=== PATIENT | male | born 1995 | race Caucasian/White ===

== ENCOUNTER 2022-06-06 09:18 | Emergency (ER) | payer SELFPAY ==
--- NOTE | ~2022-06-06 | XR_ITS ---
EXAMINATION: XR ANKLE, RIGHT. XR FOOT, RIGHT. CLINICAL INFORMATION: Injury COMPARISON: Radiographs 03/27/2019 TECHNIQUE: 3 views of the right ankle. 3 views of the right foot. FINDINGS: The ankle mortise is preserved. There is an accessory navicular, unchanged. No fracture. Small enthesophyte at the Achilles tendon insertion. Chronic flattening of the 2nd metatarsal head suggesting remote Freiberg's infraction. XR/XR ankle RT min 3V IMPRESSION: No acute fracture or dislocation. No significant change.
--- NOTE | ~2022-06-06 | XR_ITS ---
EXAMINATION: XR ANKLE, RIGHT. XR FOOT, RIGHT. CLINICAL INFORMATION: Injury COMPARISON: Radiographs 03/27/2019 TECHNIQUE: 3 views of the right ankle. 3 views of the right foot. FINDINGS: The ankle mortise is preserved. There is an accessory navicular, unchanged. No fracture. Small enthesophyte at the Achilles tendon insertion. Chronic flattening of the 2nd metatarsal head suggesting remote Freiberg's infraction. XR/XR foot RT 2V IMPRESSION: No acute fracture or dislocation. No significant change.
[2022-06-06 09:21] VITALS: BP 147/100; PULSE 88; RESP 16; TEMP 36.1; O2SAT 99; BMI 30.3
--- NOTE | 2022-06-06 10:03 | ED.LOWEXIN ---
HPI - Extremity Injury (Lower) General Chief Complaint: Extremity Injury, Lower Stated Complaint: right ankle pain swollen Time Seen by Provider: 06/06/22 10:03 Source: patient Mode of arrival: ambulatory History of Present Illness HPI Narrative: 27-year-old male with no significant past medical history presenting to the ED complaining of right ankle pain and swelling s/p twisting ankle while playing basketball last night. Reports has not been ambulatory since incident. Denies injury to the area, head trauma or LOC, numbness or tingling MD complaint: ankle injury Related Data Allergies Allergy/AdvReac Type Severity Reaction Status Date / Time No Known Allergies Allergy Unverified 06/06/22 09:19 [No Known Allergies*] Review of Systems Review of Systems: Constitutional: , No Fever, No Chills ENT/Mouth: No Ear Pain, No Nasal Congestion, No sore throat, No Rhinorrhea, No Swallowing Difficulty Cardiovascular: No Chest Pain, No SOB Respiratory: No Cough, No Sputum, No Wheezing Gastrointestinal: No Nausea, No Vomiting, No Diarrhea, No Constipation, No Abdominal pain Genitourinary: No Dysuria, No Urinary Frequency Musculoskeletal: + joint pain, No Myalgias, + Joint Swelling Skin: No Skin Lesions, No rash Neuro: No Weakness, No Numbness, No Paresthesias Yes all other systems are reviewed and are negative [facility] Past Medical History Attestation statement: The following information was validated with the patient. Social History Social History Advance Directives: No Advance Directives Information Provided: No Physical Exam Vital Signs: Vital Signs: Last Vital Signs Temp 97.0 F 06/06/22 09:21 Pulse 88 06/06/22 09:21 Resp 16 06/06/22 09:21 BP 147/100 H 06/06/22 09:21 Pulse Ox 99 06/06/22 09:21 O2 Del Method 06/06/22 09:21 BMI result Body Mass Index 30.3 Const: General: cooperative, healthy appearing and no acute distress Orientation/consciousness: patient oriented x3 Limitations: no limitations HEENT: Head: Yes normal to inspection and Yes atraumatic Ears: hearing grossly normal bilaterally General nose exam: Normal external nose present Face and sinus: Yes normal facial exam Eyes: General: appearance normal, both eyes and all related structures EOM: EOMs intact bilaterally Neck: Neck: Yes normal visual inspection and Yes no meningeal signs Resp: Effort & Inspection: normal respiratory effort and no respiratory distress Cardio: Rate: regular rate Heart sounds: S1 normal heart sound present and S2 normal heart sound present Peripheral pulses: dorsalis pedis present Skin: Rashes: no rashes Wounds: no wounds Neuro: General: patient oriented x3, tone normal and no meningeal signs Gait exam (Neuro): Normal gait present Extrem: Other: + right ankle with noted swelling > lateral malleolus with diffuse tenderness. Decreased ROM secondary to pain.+ mild tenderness to proximal volar aspect of foot. Neurovascularly intact. Toe ROM intact. Knee/tib-fib nontender Course Course Course Narrative: XR foot RT 2V IMPRESSION: No acute fracture or dislocation. No significant change.? XR ankle RT min 3V IMPRESSION: No acute fracture or dislocation. No significant change.? >> patient placed in air cast and supplied with crutches. Recommended follow-up with PCP due to x-ray findings of remote Mary's infraction MDM - Extremity Injury (Lower) MDM Narrative Medical decision making narrative: 27-year-old male with no significant past medical history presenting to the ED complaining of right ankle pain and swelling s/p twisting ankle while playing basketball last night. On exam vital signs stable, in the ED, physical exam as above. Concern for ankle/foot fracture versus sprain Plan: X-rays Differential Diagnosis Differential diagnosis: Likely ankle sprain and strain and ankle fracture Medical Records Attestation: I reviewed the patient's medical records. Lab Data Attestation: I reviewed the patient's lab results. Discharge Plan Discharge Clinical Impression: Ankle sprain and strain Patient Disposition: Home, Self-Care Instructions: Ankle Strain (ED) Additional Instructions: You sprained her ankle. It is not broken/fractured. They do see a chronic change to your foot of your 2nd metatarsal, please follow-up with orthopedics Wear Aircast at home as needed and use crutches. He may bear weight as tolerated. Ice and elevate Take Tylenol and Motrin for pain If symptoms persist or worsen return to the emergency department Referrals: Tamy Royal PA-C [Physician [facility]] - 10 days Stand Alone Forms: Work/School Release Interventions: ED Discharge Assessment Last Done: 06/06/22 11:25 Discharge Date/Time: 06/06/22 11:27
== END 2022-06-06 11:27 | disposition home or self-care (01) ==
PROVIDERS: Emergency Provider Emergency Medicine
DX: S93.401A Sprain of unspecified ligament of right ankle, initial encounter (principal); S96.911A Strain of unspecified muscle and tendon at ankle and foot level, right foot, initial encounter; X50.1XXA Overexertion from prolonged static or awkward postures, initial encounter; Y93.67 Activity, basketball; Y92.310 Basketball court as the place of occurrence of the external cause; Y99.9 Unspecified external cause status
CPT/HCPCS: 73610; 73620; 99283

== ENCOUNTER 2022-10-07 17:44 | Emergency (ER) | payer OTHER, SELFPAY ==
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
[2022-10-07 19:21] VITALS: BP 186/108; PULSE 86; RESP 18; TEMP 36.7; O2SAT 98; BMI 30.3
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
[2022-10-07] MEDS: Ibuprofen 800 MG TABLET PO (19:27)
[2022-10-07] MEDS: ondansetron HCL 4 MG/2 ML VIAL IVPUSH (23:38)
[2022-10-07] MEDS: dexAMETHasone sod phosphate 10 MG/ML VIAL IVPUSH (23:38)
[2022-10-07] MEDS: Ketorolac Tromethamine 30 MG/ML VIAL IVPUSH (23:50)
--- NOTE | 2022-10-07 23:57 | PC.NURSE ---
pt has been called from the waiting room on multiple times with no answer. pt was walking in and out of the waiting room witnessed by staff. on return to waiting room pt was brought right back to a room.
[2022-10-08 00:47] VITALS: BP 137/84; PULSE 74; TEMP 36.4; O2SAT 95
== END 2022-10-08 02:11 | disposition still patient (30) ==
PROVIDERS: Emergency Provider Internal Medicine
DX: S16.1XXA Strain of muscle, fascia and tendon at neck level, initial encounter (principal); V43.52XA Car driver injured in collision with other type car in traffic accident, initial encounter; M54.50 Low back pain, unspecified; Y93.89 Activity, other specified; Y92.414 Local residential or business street as the place of occurrence of the external cause; Y99.9 Unspecified external cause status
CPT/HCPCS: 70450; 72100; 72125; 72128; 96374; 96375; 99283; 99284; J1100; J1885; J2405